=== PATIENT | female | born 1975 | race Caucasian/White ===

== ENCOUNTER → 2017-02-15 | Outpatient (CLI) | payer BC ==
[~2017-02-15] MED LIST: ATOR10TA60 PO; CALC500T27 PO
--- NOTE | 2017-02-15 10:20 | KCIC ---
PROCEDURE MR of the left shoulder HISTORY Left shoulder pain and arm pain since August 2016. No known injury. TECHNIQUE Routine multiplanar sequences are obtained. COMPARISON None FINDINGS The acromioclavicular joint is intact. Mild rotator cuff tendinosis signal is identified. There is a partial high-grade intramuscular tear of the infra spinatus, at the musculotendinous junction. The infra spinatus tendon attachment at greater tuberosity is intact. Supraspinatus and subscapularis tendon are intact. No significant subdeltoid bursal fluid. No evidence of a labral tear.. No evidence of paralabral cyst. No acute articular cartilage defect. No significant joint effusion. Biceps tendon is intact. No bone lesion or acute fracture. IMPRESSION Partial high-grade intramuscular tear of the infraspinatus, at the musculotendinous junction. There is no evidence of a tear at the rotator cuff attachment. Electronically signed by: Ousmane Kohler MD (Feb 15, 2017 10:19:15)
== END | disposition home or self-care (01) ==
LOC: KCIC MRI 08:38
PROVIDERS: ATTEND Orthopaedic Surgery
DX: M25.511 Pain in right shoulder (principal)
CPT/HCPCS: 73221